=== PATIENT | male | born 1985 | race Hispanic/Latino ===

== ENCOUNTER 2016-04-24 17:03 | Emergency (ER) | payer OTHER ==
[2016-04-24 17:32] VITALS: BP 113/73
--- OUTSIDE RECORDS SUMMARY | 2016-04-24 17:59 | XMS REPORT | Continuity of Care Document ---
:1985 Author Organization [facility] ([facility]) [place] [address] Phone [phone] Care Team Providers Name Role Phone Kilo Krueger Primary Care Provider [phone] Source Comments This disclosure is being made pursuant to the Care Everywhere program, applicable federal and state laws, and may not contain all informaitonavailable regarding this patient.[facility] ([facility]) Active Allergies and Adverse Reactions No Known Allergies Current Medications Prescription Sig. Disp. Refills Start Date End Date Status HYDROcodone-acetaminoph Take 1 tablet by Active en 5-325 mg per tablet mouth every 4 hours as needed. ALPRAZolam 2 mg tablet Take 2 mg by Active mouth at bedtime as needed. LORazepam 0.5 mg tablet Take 0.5 mg by Active mouth every 4 hours as needed. orphenadrine 100 mg XR Take 100 mg by Active tablet mouth 2 times daily as needed. meloxicam 15 mg tablet Take 1 tablet (15 60 tablet 11 03/31/2016 Active mg total) by mouth daily. Active Problems Not on file Most Recent Encounters Date Type Specialty Providers Description 03/31/2016 Hospital Encounter Radiology Yamileth Oliveira MD Dx: Herniated disc, cervical 03/31/2016 Hospital Encounter Radiology Yamileth Oliveira MD Dx: Herniated disc, cervical 03/31/2016 Hospital Encounter Radiology Yamileth Oliveira MD Dx: Herniated disc, cervical 03/31/2016 Office Visit Neurosurgery Default, Other Billg Dx: Herniated disc, - Defo cervical (Primary Dx) Igor Michelle MD Social History Tobacco Use Types Packs/Day Years Used Date Current Every Day Smoker Cigarettes 0.5 Smokeless Tobacco: Never Used Last Filed Vital Signs Vital Sign Reading Time Taken Blood Pressure 137/79 03/31/2016 2:19 PM [employer] Pulse 87 03/31/2016 2:19 PM [employer] Temperature 34.5 C (94.1 F) 03/31/2016 2:19 PM [employer]IN[employer]GEON Respiratory Rate - - Height 1.702 m (5' 7") 03/31/2016 2:19 PM [employer]IN[employer]GEON Weight 71.2 kg (156 lb 15.5 oz) 03/31/2016 2:19 PM [employer]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
--- NOTE | 2016-04-24 18:14 | ERNOTE ---
Date of Service: 04/24/16 Time Seen by Provider: 04/24/16 17:45 Stated Complaint: UPPER RESP Presenting Symptoms:: cough Source: patient, RN notes reviewed, other - [employer] database Exam Limitations: no limitations Immunizations: IMMUNIZATION HX Immunizations Up to Date Yes History of Influenza Vaccine Yes Hx Pneumococcal Vaccination No Allergies/Adverse Reactions: Allergies No Known Allergies Allergy (Verified 02/29/16 17:59) Home Medications: HOME MEDICATIONS ALPRAZolam [Xanax] 2 mg PO DAILY 09/23/15 [Last Taken Unknown] Amox Tr/Potassium Clavulanate [Augmentin 875-125 Tablet] 875 mg PO Q12H #20 tab 04/24/16 [Last Taken Unknown] Burlington 5-325 04/24/16 [Last Taken Unknown] Risperdal 04/24/16 [Last Taken Unknown] - History of Present Ilness Narrative: 31 y/o male ambulatory to the ED for a cough that has been present for 2 weeks. He also reports having diarrhea for 2 days. He reports that he needs something to stop his cough so his immunocompromised does not become ill. He has been taking NyQuil along with Alprazolam 2 mg but he still can't sleep. His [employer] record shows that he was prescribed Burlington and Soma on by his PCP. Frequency/Possible Cause: Reports: unknown cause Prior Treatment: Denies: currently on antibiotics Review of Systems - Review of Systems Constitutional: Present: chills, fatigue, malaise EYE: Present: no symptoms reported ENT: Present: nose congestion, nasal drainage, sore throat. Absent: ear pain Respiratory: Present: cough. Absent: shortness of breath Cardiology: Absent: palpitations, syncope Gastrointestinal/Abdominal: Present: diarrhea. Absent: nausea, vomiting Genitourinary: Present: no symptoms reported Musculoskeletal: Present: no symptoms reported Skin: Present: no symptoms reported Neurological: Present: headache. Absent: dizziness/light-headedness Endocrine: Present: no symptoms reported Hematologic/Lymphatic: Present: no symptoms reported Psych: Present: no symptoms reported - Patient's Past Medical History Patient History - Medical: Anxiety, Chronic Pain, Depression, Other Patient History - Cardiac/Respiratory: No pertinent hx Patient History - Cancer: No Hx of Cancer Patient History - Surgical Procedures: T & A Patient History - Other: None - Social History Living Situations: spouse Abuse History: No History of abuse Psych History: No pertinent hx Smoking Status: Current every day smoker Have you smoked in the past 12 months: Yes Patient requests Smoking Cessation Consult: No Initiate information on Smoking Cessation: No Alcohol Use: occasionally Drug Use: none - Immunizations Immunizations Up to Date: Yes Hx Pneumococcal Vaccination: No History of Influenza Vaccine: Yes Physical Exam - Physical Exam General Appearance: Present: wd/wn, alert, no apparent distress Ears, Nose, Throat: Present: hearing grossly normal, nasal congestion, sinus pain/drainage, pharyngeal erythema. Absent: abnormal TM (R), abnormal TM (L) Neck: Present: supple, lymphadenopathy (R), lymphadenopathy (L) Respiratory: Present: no respiratory distress, normal breath sounds, no accessory muscle use, lungs clear Cardiovascular/Chest: Present: regular rate, rhythm, no murmur Neurological Exam: Present: alert, oriented, no motor/sensory deficits, other - dysphoric. Absent: normal mood/affect Skin Exam: Present: normal color, warm/dry ED Progress - Vital Signs Patient's Vital Signs:: I have reviewed the patient's vital signs. Vital Signs: Vital Signs 04/24/16 17:25 Temperature 36.9 C Pulse Rate 79 Respiratory 18 Rate Blood Pressure 113/73 O2 Sat by Pulse 97 Oximetry - Progress/Reassessment Chief Complaint: Upper Respiratory Symptoms Progress:: Unchanged Progress Note-Subjective: 04/24/16 18:08 Patient unhappy with not being prescribed a cough medication. Informed that adding a cough syrup with codeine to his alprazolam would be inappropriate. He did not mention the Burlington and Soma on his [employer] report at all. Departure - Departure Clinical Impression: Bronchitis Sinusitis, acute Qualifiers: Sinusitis location: unspecified location Recurrence: non-recurrent Qualified Code(s): J01.90 - Acute sinusitis, unspecified Disposition: Home self-care Condition: Stable Instructions: Sinusitis, Adult, [id number], Acute Bronchitis, [id number] Prescriptions: Amox Tr/Potassium Clavulanate [Augmentin 875-125 Tablet] 875 mg PO Q12H #20 tab
== END 2016-04-24 18:15 | disposition home or self-care (01) ==
LOC: ER 17:03
DX: J20.9 Acute bronchitis, unspecified (principal); J01.90 Acute sinusitis, unspecified; Z72.0 Tobacco use